=== PATIENT | female | born 1945 | race Hispanic/Latino ===

== ENCOUNTER 2017-09-25 23:36 | Emergency (ER) | payer MEDICARE ==
[~2017-09-25 23:36] MED LIST: AMLO10TA2 PO; CHOL200012 PO; CYCL5TAB PO; LEVO100T12 PO; LEVO50TA11 PO; METO50TA18 PO; OMEP20TA25 PO; PRAV10TA39 PO; TRAM50TA4 PO
[2017-09-25] MEDS ORDERED: ACETAMINOPHEN EXTRA STRENGTH 500 MG TABLET ONE (23:55)
[2017-09-26] MEDS ORDERED: TETANUS/DIPHTHERIA TOXOID [ADULT] 0.5 ML VIAL IM ONE (00:10)
[2017-09-26] MEDS ORDERED: TRAMADOL HCL 50 MG TABLET ONE (00:28)
[2018-02-14] MEDS ORDERED: PRAV10TA39 PO (11:23)
[2018-02-14] MEDS ORDERED: LEVO100T12 PO (11:23)
== END 2017-09-26 01:45 | disposition home or self-care (01) ==
LOC: EDH 23:36
DX: S80.211A Abrasion, right knee, initial encounter (principal); S50.311A Abrasion of right elbow, initial encounter; J45.909 Unspecified asthma, uncomplicated; E07.9 Disorder of thyroid, unspecified; K21.9 Gastro-esophageal reflux disease without esophagitis; E78.5 Hyperlipidemia, unspecified; M19.90 Unspecified osteoarthritis, unspecified site; M79.7 Fibromyalgia; I10 Essential (primary) hypertension; W18.39XA Other fall on same level, initial encounter; Y93.01 Activity, walking, marching and hiking; Y92.89 Other specified places as the place of occurrence of the external cause; Y99.8 Other external cause status
CPT/HCPCS: 29505; 73562; 90471; 90714

== ENCOUNTER 2018-02-16 06:25 | Day surgery (SDC) | payer MEDICARE ==
[2018-02-14 11:01] VITALS: BP 125/58
[2018-02-14 11:01] LABS: APPEARANCE,URINE Clear (CLEAR); BILIRUBIN,URINE Negative (NEGATIVE); COLOR,URINE Yellow (YELLOW); GLUCOSE, URINE (UA) Negative (NEGATIVE); KETONES,URINE Negative (NEGATIVE); LEUKOCYTE ESTERASE ,URINE Moderate (NEGATIVE); NITRATE,URINE Negative (NEGATIVE); OCCULT BLOOD,URINE Negative (NEGATIVE); PH,URINE 5.5 (5.0-8.0); PROTEIN,URINE Negative (NEGATIVE); UROBILINOGEN,URINE 0.2 mg/dL (0.2-1.0)
[2018-02-14 11:13] LABS: ALBUMIN 3.7 g/dL (3.5-5.0); BILIRUBIN,DIRECT 0.1 mg/dL (0.0-0.3); BILIRUBIN,TOTAL 0.4 mg/dL (0.2-1.0); CREATININE 1.9 mg/dL (0.5-1.5); POTASSIUM 5.1 mmol/L (3.5-5.1); TOTAL PROTEIN, SERUM 7.8 g/dL (6.0-8.3)
[2018-02-14 11:17] LABS: BACTERIA,URINE Many /HPF (None Seen); RBC,URINE 0-1 /HPF (0-1); SQUAMOUS EPITHELIAL CELL,UR Rare /HPF (0-2)
[~2018-02-16] VITALS: Ht 162.6 cm; Wt 68.1 kg
[2018-02-16] VITALS (15 sets, daily range): BP systolic 90–159; BP diastolic 47–108
[~2018-02-16 06:25] MED LIST changes: -CYCL5TAB PO; -LEVO50TA11 PO; -TRAM50TA4 PO
[2018-02-16] MEDS ORDERED: FENTANYL CITRATE PF 50 MCG/1 ML 2ML VIAL ONE ×2 (07:43→09:20)
[2018-02-16] MEDS ORDERED: PROPOFOL 10 MG/ML 20ML VIAL IV ONE (07:43)
[2018-02-16] MEDS ORDERED: MIDAZOLAM HCL 1 MG/ML 2ML VIAL ONE (07:43)
[2018-02-16] MEDS ORDERED: HEPARIN SODIUM 1000UNIT/ML 10ML VIAL ONE (08:17)
[2018-02-16] MEDS ORDERED: FAMOTIDINE/PF 20 MG/2 ML VIAL IV ONE (08:32)
[2018-02-16] MEDS ORDERED: METOCLOPRAMIDE 10 MG/2 ML VIAL ONE (08:32)
[2018-02-16] MEDS ORDERED: LACTATED RINGERS 1000ML 1,000 ML IV ONE (08:33)
[2018-02-16] MEDS ORDERED: LIDOCAINE PF 2% 5ML ABBOJECT ONE (08:47)
[2018-02-16] MEDS ORDERED: ROCURONIUM BROMIDE 10MG/1ML 5ML VL ONE (08:47)
[2018-02-16] MEDS ORDERED: NEOSTIGMINE 5MG/5ML SYR IV ONE (08:47)
[2018-02-16] MEDS ORDERED: GLYCOPYRROLATE 0.2 MG/ML 5 ML VIAL ONE (08:47)
[2018-02-16] MEDS ORDERED: SUCCINYLCHOLINE CHLORIDE 20 MG/ML 10 ML VIAL ONE (08:47)
[2018-02-16] MEDS ORDERED: LIDOCAINE HCL 2% JELLY 5 ML ONE (08:47)
== END 2018-02-16 11:50 | disposition home or self-care (01) ==
LOC: DAH 06:25
PROVIDERS: ATTEND Surgery
DX: K81.1 Chronic cholecystitis (principal); K82.8 Other specified diseases of gallbladder; K21.9 Gastro-esophageal reflux disease without esophagitis; E78.5 Hyperlipidemia, unspecified; E03.9 Hypothyroidism, unspecified; E55.9 Vitamin D deficiency, unspecified; Z98.890 Other specified postprocedural states; Z98.51 Tubal ligation status; Z79.899 Other long term (current) drug therapy; M06.9 Rheumatoid arthritis, unspecified; J45.909 Unspecified asthma, uncomplicated; F41.9 Anxiety disorder, unspecified; I12.9 Hypertensive chronic kidney disease with stage 1 through stage 4 chronic kidney disease, or unspecified chronic kidney disease; N18.9 Chronic kidney disease, unspecified; M34.9 Systemic sclerosis, unspecified; I73.00 Raynaud's syndrome without gangrene
CPT/HCPCS: 36415 ×2; 47562; 80048; 80076; 81001; 82948; 84132; 88304; 93005; A4450; A4649; C1769 ×4; J0330; J1644; J2001; J2250; J2704; J2710; J2765; J3010 ×2; J3490 ×3; J7030; J7120

== ENCOUNTER → 2021-03-17 | Outpatient (CLI) | payer MEDICARE ==
[~2021-03-17] MED LIST changes: +AMLO-258 PO; -AMLO10TA2 PO; +CEFD300C3 PO; +CYCL10TA7 PO; +LATA7.5D OP; -PRAV10TA39 PO
== END | disposition home or self-care (01) ==
LOC: SHCH 08:49
PROVIDERS: ATTEND Internal Medicine Cardiovascular Disease
DX: R94.31 Abnormal electrocardiogram [ECG] [EKG] (principal)
CPT/HCPCS: 93306; 93356

== ENCOUNTER → 2021-03-27 | Outpatient (CLI) | payer MEDICARE ==
[~2021-03-27] VITALS: Ht 165.1 cm; Wt 69.9 kg
[~2021-03-27] MED LIST changes: +REGADENOSON 0.4 MG/5 ML PF SYG IVP SCH
== END | disposition home or self-care (01) ==
LOC: SHCH 09:08
PROVIDERS: ATTEND Internal Medicine Cardiovascular Disease
DX: R06.00 Dyspnea, unspecified (principal); R07.9 Chest pain, unspecified
CPT/HCPCS: 78452; 93017; 96374; A9500 ×2; J2785

== ENCOUNTER → 2021-08-18 | Outpatient (CLI) | payer MEDICARE ==
[~2021-08-18] MED LIST changes: +CYCL-309 PO; -CYCL10TA7 PO; -REGADENOSON 0.4 MG/5 ML PF SYG IVP SCH
== END | disposition home or self-care (01) ==
LOC: RAH 14:07
PROVIDERS: ATTEND Internal Medicine Cardiovascular Disease
DX: J84.10 Pulmonary fibrosis, unspecified (principal); R91.8 Other nonspecific abnormal finding of lung field; M51.35 Other intervertebral disc degeneration, thoracolumbar region
CPT/HCPCS: 71250

== ENCOUNTER 2022-03-17 11:56 | Observation (INO) | payer MEDICARE, OTHER ==
[~2022-03-17] VITALS: Ht 165.1 cm; Wt 62.1 kg
[~2022-03-17 11:56] MED LIST changes: +OMEP20TA20 PO; -OMEP20TA25 PO
[2022-03-17 12:29] LABS: BASOPHILS % (AUTO) 0.3 % (0.0-5.0); EOSINOPHILS % (AUTO) 2.2 % (0.0-8.0); HEMATOCRIT 42.2 % (36-48); LYMPHOCYTES % (AUTO) 18.4 % (21.0-51.0); MEAN CORPUSCULAR HEMOGLOBIN 28.6 pg (27.0-33.0); MEAN CORPUSCULAR HGB CONC 31.8 g/dL (32.0-36.0); MEAN CORPUSCULAR VOLUME 90.2 fL (79-99); MONOCYTES % (AUTO) 8.2 % (3.0-13.0); NEUTROPHILS % (AUTO) 70.6 % (40.0-77.0); PLATELET COUNT (AUTO) 145 K/uL (130-400); RED BLOOD CELL COUNT(AUTO) 4.68 MIL/uL (4.00-5.50); RED CELL DISTRIBUTION WIDTH 13.6 % (11.0-15.5); WHITE BLOOD COUNT (AUTO) 7.9 K/uL (4.8-10.8)
[2022-03-17] MEDS ORDERED: NITROGLYCERIN 0.4 MG SL TAB SL PRN (12:30)
[2022-03-17 12:45] LABS: ALBUMIN 3.4 g/dL (3.5-5.0); BILIRUBIN,TOTAL 0.5 mg/dL (0.2-1.0); CREATININE 1.9 mg/dL (0.5-1.5); POTASSIUM 4.4 mmol/L (3.5-5.1); TOTAL PROTEIN, SERUM 7.8 g/dL (6.0-8.3)
[2022-03-17 13:13] LABS: APPEARANCE,URINE CLEAR (CLEAR); BILIRUBIN,URINE NEGATIVE (NEGATIVE); COLOR,URINE YELLOW (YELLOW); GLUCOSE, URINE (UA) NEGATIVE (NEGATIVE); KETONES,URINE NEGATIVE (NEGATIVE); LEUKOCYTE ESTERASE ,URINE SMALL (NEGATIVE); NITRATE,URINE NEGATIVE (NEGATIVE); OCCULT BLOOD,URINE NEGATIVE (NEGATIVE); PROTEIN,URINE NEGATIVE (NEGATIVE); UROBILINOGEN,URINE 0.2 mg/dL (0.2-1.0)
[2022-03-17 13:22] LABS: BACTERIA,URINE Rare /HPF (None Seen); RBC,URINE 0-1 /HPF (0-1); SQUAMOUS EPITHELIAL CELL,UR Rare /HPF (0-2)
[2022-03-17] MEDS ORDERED: HYDRALAZINE 20MG/ML VIAL IV PRN (16:30)
[2022-03-17] MEDS ORDERED: LACTULOSE 20 GM/30 ML UDCUP PO PRN (16:30)
[2022-03-17] MEDS ORDERED: ALBUTEROL 0.083% 2.5 MG/3 ML INH IH PRN (16:30)
[2022-03-17] MEDS ORDERED: LABETALOL 20MG SYG IV PRN (16:30)
[2022-03-17] MEDS: INSULIN HUMULIN R 100 UNIT/ML 3ML SQ SCH ×2 (16:30→21:00)
[2022-03-17] MEDS ORDERED: ASPIRIN 325MG TAB PO ONE (16:30)
[2022-03-17] MEDS: METOPROLOL TARTRATE 25 MG TAB PO SCH ×2 (16:56→21:00)
[2022-03-17] MEDS ORDERED: ASPIRIN 81MG CHEW TAB PO ONE (17:00)
[2022-03-17 20:45] VITALS: BP 157/62
[2022-03-17] MEDS: ATORVASTATIN 40 MG TABLET PO SCH (21:43)
[2022-03-18 00:20] VITALS: BP 148/60
[2022-03-18] MEDS: ACETAMINOPHEN 325 MG TAB PO PRN ×2 (00:55→21:11)
[2022-03-18 03:47] VITALS: BP 128/56
[2022-03-18 05:10] LABS: BASOPHILS % (AUTO) 0.4 % (0.0-5.0); EOSINOPHILS % (AUTO) 3.5 % (0.0-8.0); HEMATOCRIT 46.3 % (36-48); LYMPHOCYTES % (AUTO) 25.4 % (21.0-51.0); MEAN CORPUSCULAR HEMOGLOBIN 28.7 pg (27.0-33.0); MEAN CORPUSCULAR HGB CONC 31.5 g/dL (32.0-36.0); MEAN CORPUSCULAR VOLUME 91.1 fL (79-99); MONOCYTES % (AUTO) 7.3 % (3.0-13.0); NEUTROPHILS % (AUTO) 63.1 % (40.0-77.0); PLATELET COUNT (AUTO) 164 K/uL (130-400); RED BLOOD CELL COUNT(AUTO) 5.08 MIL/uL (4.00-5.50); RED CELL DISTRIBUTION WIDTH 13.6 % (11.0-15.5); WHITE BLOOD COUNT (AUTO) 6.9 K/uL (4.8-10.8)
[2022-03-18] MEDS: INSULIN HUMULIN R 100 UNIT/ML 3ML SQ SCH ×4 (05:20→19:54)
[2022-03-18 05:56] LABS: CREATININE 1.9 mg/dL (0.5-1.5); PHOSPHORUS 3.9 mg/dL (2.5-4.9); POTASSIUM 4.7 mmol/L (3.5-5.1); THYROID STIMULATING HORMONE 1.59 uIU/mL (0.36-3.74)
[2022-03-18 07:45] VITALS: BP 134/60
[2022-03-18] MEDS: METOPROLOL TARTRATE 25 MG TAB PO SCH ×2 (08:46→20:11)
[2022-03-18] MEDS: LEVOTHYROXINE 100 MCG TABLET PO SCH (08:46)
[2022-03-18] MEDS: ASPIRIN 81MG CHEW TAB PO SCH (08:46)
[2022-03-18] MEDS: ENOXAPARIN SODIUM 30 MG/0.3 ML SQ SCH (08:47)
[2022-03-18 11:22] VITALS: BP 124/59
[2022-03-18] MEDS ORDERED: ROSU10TA28 PO (13:53)
[2022-03-18] MEDS: PANTOPRAZOLE 40 MG/VIAL IVP SCH (15:03)
[2022-03-18] MEDS: PREDNISONE 20 MG TABLET PO SCH (15:03)
[2022-03-18] MEDS: CEFTRIAXONE 1G VIAL IVP SCH (15:03)
[2022-03-18 15:22] VITALS: BP 149/59
[2022-03-18] MEDS: ALBUTEROL 0.083% 2.5 MG/3 ML INH IH SCH ×2 (18:13→23:16)
[2022-03-18 20:04] VITALS: BP 155/60
[2022-03-18] MEDS: ATORVASTATIN 40 MG TABLET PO SCH (20:10)
[2022-03-19 00:33] VITALS: BP 124/56
[2022-03-19 05:01] VITALS: BP 132/56
[2022-03-19] MEDS: INSULIN HUMULIN R 100 UNIT/ML 3ML SQ SCH ×3 (06:05→16:30)
[2022-03-19] MEDS: ALBUTEROL 0.083% 2.5 MG/3 ML INH IH SCH ×3 (06:26→18:28)
[2022-03-19 08:00] VITALS: BP 140/60
[2022-03-19] MEDS: LEVOTHYROXINE 100 MCG TABLET PO SCH (11:11)
[2022-03-19] MEDS: PREDNISONE 20 MG TABLET PO SCH (11:15)
[2022-03-19] MEDS: ENOXAPARIN SODIUM 30 MG/0.3 ML SQ SCH (11:15)
[2022-03-19] MEDS: PANTOPRAZOLE 40 MG/VIAL IVP SCH (11:16)
[2022-03-19] MEDS: ASPIRIN 81MG CHEW TAB PO SCH (11:16)
[2022-03-19 11:19] VITALS: BP 156/57
[2022-03-19] MEDS: METOPROLOL TARTRATE 25 MG TAB PO SCH (11:25)
[2022-03-19] MEDS ORDERED: FLUT1AER IH (14:22)
[2022-03-19] MEDS ORDERED: PRED20B PO (14:22)
[2022-03-19] MEDS ORDERED: AZIT1PAC7 PO (14:26)
[2022-03-19 15:20] VITALS: BP 198/77
[2022-03-19] MEDS: CEFTRIAXONE 1G VIAL IVP SCH (15:24)
[2022-03-19] MEDS: ACETAMINOPHEN 325 MG TAB PO PRN (16:10)
[2022-03-19 16:21] VITALS: BP 150/75
== END 2022-03-19 19:05 | disposition home or self-care (01) ==
LOC: EDH 11:56 → EDHIP 16:24 → 3CH 19:02
PROVIDERS: ADMIT Internal Medicine Critical Care Medicine; ATTEND Internal Medicine Critical Care Medicine
DX: J18.9 Pneumonia, unspecified organism (principal); Z20.822 Contact with and (suspected) exposure to COVID-19; J84.10 Pulmonary fibrosis, unspecified; R07.89 Other chest pain; I12.9 Hypertensive chronic kidney disease with stage 1 through stage 4 chronic kidney disease, or unspecified chronic kidney disease; N17.9 Acute kidney failure, unspecified; N18.4 Chronic kidney disease, stage 4 (severe); J45.909 Unspecified asthma, uncomplicated; I73.00 Raynaud's syndrome without gangrene; J47.0 Bronchiectasis with acute lower respiratory infection; M34.9 Systemic sclerosis, unspecified; M34.1 CR(E)ST syndrome; N39.0 Urinary tract infection, site not specified; E03.9 Hypothyroidism, unspecified; E78.00 Pure hypercholesterolemia, unspecified; E78.5 Hyperlipidemia, unspecified; Z88.6 Allergy status to analgesic agent; Z86.718 Personal history of other venous thrombosis and embolism; Z79.899 Other long term (current) drug therapy; Z98.890 Other specified postprocedural states
CPT/HCPCS: 36415 ×2; 71045; 71250; 78580; 80048; 80053; 81001; 82550 ×3; 82948 ×3; 83735; 83874 ×3; 83880; 84100; 84145; 84443; 84484 ×5; 85025 ×2; 85378; 87071; 87077 ×2; 87186 ×2; 87205; 87635; 87804 ×2; 93005; 93306; 93356; 93970; 94640 ×5; 94664; 94667; 96372 ×2; 96374; 96375 ×2; 96376; 99285; A9540; C9113 ×2; C9803; G0378 ×48; J0696 ×2; J1650 ×2

== ENCOUNTER → 2022-08-20 | Emergency (ER) | payer OTHER ==
[~2022-08-20] VITALS: Ht 165.1 cm; Wt 62.6 kg
[~2022-08-20] MED LIST changes: +AZIT1PAC7 PO; +FLUT1AER IH; +PRED20B PO; +ROSU10TA28 PO
[2022-08-20 19:00] LABS: BASOPHILS % (AUTO) 0.4 % (0.0-5.0); EOSINOPHILS % (AUTO) 3.2 % (0.0-8.0); HEMATOCRIT 42.4 % (36-48); LYMPHOCYTES % (AUTO) 23.5 % (21.0-51.0); MEAN CORPUSCULAR HEMOGLOBIN 28.9 pg (27.0-33.0); MEAN CORPUSCULAR HGB CONC 32.5 g/dL (32.0-36.0); MEAN CORPUSCULAR VOLUME 88.9 fL (79-99); MONOCYTES % (AUTO) 7.1 % (3.0-13.0); NEUTROPHILS % (AUTO) 65.6 % (40.0-77.0); PLATELET COUNT (AUTO) 197 K/uL (130-400); RED BLOOD CELL COUNT(AUTO) 4.77 MIL/uL (4.00-5.50); RED CELL DISTRIBUTION WIDTH 13.8 % (11.0-15.5); WHITE BLOOD COUNT (AUTO) 8.1 K/uL (4.8-10.8)
[2022-08-20 19:12] LABS: CREATININE 1.8 mg/dL (0.5-1.5); POTASSIUM 4.4 mmol/L (3.5-5.1)
[2022-08-20 19:18] VITALS: BP 164/60
[2022-08-20 19:18] LABS: ALBUMIN 3.9 g/dL (3.5-5.0); MAGNESIUM 2.1 mg/dL (1.80-2.40); TOTAL PROTEIN, SERUM 8.5 g/dL (6.0-8.3)
[2022-08-20 19:46] LABS: B-TYPE NATRIURETIC PEPTIDE 316 pg/mL (0-100)
[2022-08-20 19:51] LABS: INR 0.99 (0.85-1.15); PROTHROMBIN TIME 10.8 SEC (9.6-11.6)
== END | disposition left against medical advice (07) ==
LOC: EDH 17:30
DX: R77.8 Other specified abnormalities of plasma proteins (principal); M35.9 Systemic involvement of connective tissue, unspecified; R97.1 Elevated cancer antigen 125 [CA 125]; R91.8 Other nonspecific abnormal finding of lung field; E78.00 Pure hypercholesterolemia, unspecified; I10 Essential (primary) hypertension; Z88.6 Allergy status to analgesic agent; Z88.8 Allergy status to other drugs, medicaments and biological substances; Z79.899 Other long term (current) drug therapy; Z98.890 Other specified postprocedural states
CPT/HCPCS: 36415; 71045; 80053; 83735; 83880; 84484; 85025; 85378; 85610; 93005

== ENCOUNTER 2022-12-27 21:45 | Emergency (ER) | payer OTHER ==
[~2022-12-27] VITALS: Ht 165.1 cm; Wt 62.1 kg
[2022-12-27 23:56] LABS: BASOPHILS % (AUTO) 0.3 % (0.0-5.0); EOSINOPHILS % (AUTO) 1.7 % (0.0-8.0); HEMATOCRIT 37.4 % (36-48); LYMPHOCYTES % (AUTO) 14.3 % (21.0-51.0); MEAN CORPUSCULAR HEMOGLOBIN 28.7 pg (27.0-33.0); MEAN CORPUSCULAR HGB CONC 31.8 g/dL (32.0-36.0); MEAN CORPUSCULAR VOLUME 90.3 fL (79-99); MONOCYTES % (AUTO) 6.4 % (3.0-13.0); NEUTROPHILS % (AUTO) 76.9 % (40.0-77.0); PLATELET COUNT (AUTO) 170 K/uL (130-400); RED BLOOD CELL COUNT(AUTO) 4.14 MIL/uL (4.00-5.50); RED CELL DISTRIBUTION WIDTH 14.3 % (11.0-15.5)
[2022-12-28 00:21] LABS: CREATININE 1.9 mg/dL (0.5-1.5); POTASSIUM 4.1 mmol/L (3.5-5.1)
[2022-12-28 00:24] LABS: INR 0.99 (0.85-1.15); PROTHROMBIN TIME 10.8 SEC (9.6-11.6)
[2022-12-28 00:25] LABS: ALBUMIN 3.5 g/dL (3.5-5.0); PARTIAL THROMBOPLASTIN TIME 29.4 SEC (26.3-35.5); TOTAL PROTEIN, SERUM 7.5 g/dL (6.0-8.3)
[2022-12-28 00:34] VITALS: BP 155/80
== END 2022-12-28 00:35 | disposition home or self-care (01) ==
LOC: EDH 21:45
DX: S50.02XA Contusion of left elbow, initial encounter (principal); S40.012A Contusion of left shoulder, initial encounter; M25.552 Pain in left hip; I10 Essential (primary) hypertension; E78.00 Pure hypercholesterolemia, unspecified; Z79.899 Other long term (current) drug therapy; Z88.6 Allergy status to analgesic agent; Z91.040 Latex allergy status; W01.0XXA Fall on same level from slipping, tripping and stumbling without subsequent striking against object, initial encounter; Y93.01 Activity, walking, marching and hiking; Y92.098 Other place in other non-institutional residence as the place of occurrence of the external cause; Y99.8 Other external cause status
CPT/HCPCS: 36415; 73030; 73080; 73503; 80053; 85025; 85610; 85730

== ENCOUNTER → 2023-04-12 | Outpatient (CLI) | payer OTHER ==
[2023-04-12 12:55] LABS: CREATININE 1.9 mg/dL (0.5-1.5); POTASSIUM 4.5 mmol/L (3.5-5.1)
== END | disposition home or self-care (01) ==
LOC: LAB 08:18
PROVIDERS: ATTEND Internal Medicine Cardiovascular Disease
DX: J84.10 Pulmonary fibrosis, unspecified (principal)
CPT/HCPCS: 36415; 80048; 83880

== ENCOUNTER → 2023-06-20 | Outpatient (CLI) | payer OTHER | END | disposition home or self-care (01) | LOC: LAB 11:05 | PROVIDERS: ATTEND Internal Medicine Cardiovascular Disease | DX: J84.10 Pulmonary fibrosis, unspecified (principal) | CPT/HCPCS: 36415; 80048; 83880 ==

== ENCOUNTER 2023-07-06 05:45 | Day surgery (SDC) | payer OTHER ==
[2023-07-04 12:30] LABS: BASOPHILS # (AUTO) 0.02 K/uL (0.00-0.20); BASOPHILS % (AUTO) 0.3 % (0.0-5.0); EOSINOPHILS # (AUTO) 0.18 K/uL (0.00-0.70); EOSINOPHILS % (AUTO) 2.5 % (0.0-8.0); HEMATOCRIT 39.3 % (36-48); IMMATURE GRANULOCYTE ABSOLUTE 0.03 K/uL (0-1); LYMPHOCYTES # (AUTO) 1.4 K/uL (1.0-4.8); LYMPHOCYTES % (AUTO) 19.3 % (21.0-51.0); MEAN CORPUSCULAR HEMOGLOBIN 29.5 pg (27.0-33.0); MEAN CORPUSCULAR HGB CONC 31.6 g/dL (32.0-36.0); MEAN CORPUSCULAR VOLUME 93.3 fL (79-99); MONOCYTES # (AUTO) 0.5 K/uL (0.1-1.0); MONOCYTES % (AUTO) 7.1 % (3.0-13.0); NEUTROPHILS # (AUTO) 5.2 K/uL (1.8-7.7); NEUTROPHILS % (AUTO) 70.4 % (40.0-77.0); PLATELET COUNT (AUTO) 169 K/uL (130-400); RED BLOOD CELL COUNT(AUTO) 4.21 MIL/uL (4.00-5.50); RED CELL DISTRIBUTION WIDTH 14.4 % (11.0-15.5); WHITE BLOOD COUNT (AUTO) 7.3 K/uL (4.8-10.8)
[2023-07-04 12:32] VITALS: BP 166/68; PULSE 55; RESP 20
[2023-07-04 12:39] LABS: INR 0.98 (0.85-1.15); PROTHROMBIN TIME 11.4 SEC (9.6-11.6)
[2023-07-04 12:40] LABS: PARTIAL THROMBOPLASTIN TIME 31.7 SEC (26.3-35.5)
[2023-07-04 12:50] LABS: B-TYPE NATRIURETIC PEPTIDE 1120 pg/mL (0-100)
[2023-07-04 12:51] LABS: POTASSIUM 4.7 mmol/L (3.5-5.1)
[2023-07-04 13:08] LABS: APPEARANCE,URINE CLEAR (CLEAR); BILIRUBIN,URINE NEGATIVE (NEGATIVE); COLOR,URINE LIGHT-YELLOW (YELLOW); GLUCOSE, URINE (UA) NEGATIVE (NEGATIVE); KETONES,URINE NEGATIVE (NEGATIVE); LEUKOCYTE ESTERASE ,URINE NEGATIVE Leu/uL (NEGATIVE); NITRATE,URINE NEGATIVE (NEGATIVE); OCCULT BLOOD,URINE NEGATIVE (NEGATIVE); PROTEIN,URINE NEGATIVE (NEGATIVE); UROBILINOGEN,URINE 0.2 mg/dL (0.2-1.0)
[2023-07-04 13:10] LABS: ADD UA MICROSCOPIC NO
[2023-07-06] VITALS (11 sets, daily range): BP systolic 150–204; BP diastolic 58–78; PULSE 49–76; RESP 12–20
[~2023-07-06] VITALS: Ht 160 cm; Wt 61.6 kg
[~2023-07-06 05:45] MED LIST changes: -AMLO-258 PO; -AZIT1PAC7 PO; +BRIM5DRO5 OU; -CEFD300C3 PO; +CHOL2000 PO; -CHOL200012 PO; -CYCL-309 PO; -FLUT1AER IH; +FLUT1BLS3 IH; +KETO5DRO40 OU; -LATA7.5D OP; -LEVO100T12 PO; +LEVO112T7 PO; +METO25TA6 PO; -METO50TA18 PO; +NETA2.5D OU; -PRED20B PO; +PROP15DR OU; +TIMO1DRO8 OU
[2023-07-06] MEDS ORDERED: DiphenhydrAMINE HCL 50 MG/ML VIAL ONE (06:21)
[2023-07-06] MEDS ORDERED: SOLU-MEDROL 125MG VIAL ONE (06:21)
[2023-07-06] MEDS ORDERED: 0.9%NACL 1000ML 1,000 ML IV ONE (06:21)
[2023-07-06] MEDS ORDERED: LIDOCAINE HCL 400MG/20ML VIAL ONE (07:25)
[2023-07-06] MEDS ORDERED: IOHEXOL 350 MG/ML 100ML INFUS..BTL IV ONE (07:25)
[2023-07-06] MEDS ORDERED: SODIUM BICARB 50MEQ 50ML VIAL 50 ML ONE (07:25)
[2023-07-06] MEDS ORDERED: HEPARIN 10,000 UNIT/10ML (1,000 UNIT/ML) VIAL ONE (07:25)
[2023-07-06] MEDS ORDERED: NITROGLYCERIN 50MG VIAL ONE (07:26)
[2023-07-06] MEDS ORDERED: FENTANYL CITRATE PF 50 MCG/1 ML 2ML VIAL ONE (07:49)
[2023-07-06] MEDS ORDERED: MIDAZOLAM HCL 1 MG/ML 2ML VIAL ONE (07:50)
[2023-07-06] MEDS ORDERED: FURO20TA4 PO (08:26)
[2023-07-06] MEDS ORDERED: POTA-192 PO (08:26)
== END 2023-07-06 10:50 | disposition home or self-care (01) ==
LOC: DAH 05:45
PROVIDERS: ATTEND Internal Medicine Cardiovascular Disease
DX: I27.20 Pulmonary hypertension, unspecified (principal); I13.0 Hypertensive heart and chronic kidney disease with heart failure and stage 1 through stage 4 chronic kidney disease, or unspecified chronic kidney disease; N18.4 Chronic kidney disease, stage 4 (severe); I50.30 Unspecified diastolic (congestive) heart failure; J44.9 Chronic obstructive pulmonary disease, unspecified; E03.9 Hypothyroidism, unspecified; E78.5 Hyperlipidemia, unspecified; Z79.1 Long term (current) use of non-steroidal anti-inflammatories (NSAID); Z91.041 Radiographic dye allergy status; Z83.3 Family history of diabetes mellitus; Z80.3 Family history of malignant neoplasm of breast; Z83.1 Family history of other infectious and parasitic diseases; Z82.49 Family history of ischemic heart disease and other diseases of the circulatory system; Z79.890 Hormone replacement therapy; Z79.899 Other long term (current) drug therapy; Z90.49 Acquired absence of other specified parts of digestive tract; Z90.710 Acquired absence of both cervix and uterus; Z98.890 Other specified postprocedural states
CPT/HCPCS: 80048; 83880; 85025; 85610; 85730; 81003; 36415; 71045; 93005; 93451; C1894 ×2; J1200; J3010; J3490 ×3; J7030; J2930; J2250; J1644; A4215; A4222; A4221; A4663; A4216; A4606; A4223 ×3; Q9967

== ENCOUNTER → 2023-07-26 | Outpatient (CLI) | payer OTHER ==
[~2023-07-26] MED LIST changes: +FURO20TA4 PO; +POTA-192 PO
[2023-07-26 12:34] LABS: CREATININE 1.8 mg/dL (0.5-1.5); POTASSIUM 4.6 mmol/L (3.5-5.1)
== END | disposition home or self-care (01) ==
LOC: LAB 09:17
PROVIDERS: ATTEND Internal Medicine Cardiovascular Disease
DX: I27.20 Pulmonary hypertension, unspecified (principal)
CPT/HCPCS: 36415; 80048; 83880